=== PATIENT | female | born 1980 ===

== ENCOUNTER 2016-12-04 13:03 | Observation (INO) | payer OTHER ==
[2016-12-04] MEDS ORDERED: Sodium Chloride 0.9% 1,000 ML IV ONE (13:58)
--- NOTE | 2016-12-04 14:01 | ED PDOC ---
HPI: Abdomen Time Seen by Provider: 12/04/16 13:35 Chief Complaint (Nursing): GI Problem History Per: Patient History/Exam Limitations: no limitations Onset/Duration Of Symptoms: Days (4), Gradual Severity: Mild Location Of Pain/Discomfort: Epigastric Quality Of Discomfort: Cramping Associated Symptoms: Nausea, Vomiting. denies: Fever, Chills, Diarrhea, Back Pain, Chest Pain, Constipation, Urinary Symptoms Exacerbating Factors: None Alleviating Factors: None Additional History Per: Patient Additional Complaint(s): Patient having n/v starting yesterday, today patient vomited 4xs. Past Medical History Reviewed: Historical Data, Nursing Documentation, Vital Signs Vital Signs: Last Vital Signs Temp 101.3 F H 12/04/16 13:22 Pulse 100 H 12/04/16 13:22 Resp 18 12/04/16 13:22 BP 131/73 12/04/16 13:22 Pulse Ox 100 12/04/16 14:02 - Family History Family History: States: Unknown Family Hx - Living Arrangements Living Arrangements: With Family - Social History Current smoker - smoking cessation education provided: No - Allergies Allergies/Adverse Reactions: Allergies Allergy/AdvReac Type Severity Reaction Status Date / Time No Known Allergies Allergy Verified 12/04/16 13:22 Review of Systems ROS Statement: Except As Marked, All Systems Reviewed And Found Negative Constitutional: Negative for: Fever, Chills Cardiovascular: Negative for: Chest Pain, Palpitations Respiratory: Positive for: Cough Gastrointestinal: Positive for: Nausea, Vomiting, Abdominal Pain Neurological: Positive for: Headache. Negative for: Weakness, Numbness, Dizziness Physical Exam - Reviewed Nursing Documentation Reviewed: Yes Vital Signs Reviewed: Yes - Physical Exam Appears: Positive for: Uncomfortable Head Exam: Positive for: ATRAUMATIC, NORMAL INSPECTION, NORMOCEPHALIC Eye Exam: Positive for: Normal appearance, EOMI, PERRL Neck: Positive for: Normal, Painless ROM, Supple Cardiovascular/Chest: Positive for: Regular Rate, Rhythm, Chest Non Tender. Negative for: Edema Respiratory: Positive for: Normal Breath Sounds Gastrointestinal/Abdominal: Positive for: Normal Exam, Bowel Sounds, Soft, Tenderness (mild ruq and rlq) Back: Positive for: Normal Inspection. Negative for: L CVA Tenderness, R CVA Tenderness Extremity: Positive for: Normal ROM. Negative for: Tenderness, Pedal Edema Neurologic/Psych: Positive for: Alert, tiler's assistant II-XII, Oriented, Mood/Affect (calm) . Negative for: Motor/Sensory Deficits - Laboratory Results Result Diagrams: 12/04/16 14:00 12/04/16 14:00 - ECG O2 Sat by Pulse Oximetry: 100 Pulse Ox Interpretation: Normal - Progress ED Course And Treament: pt has hamilton colitis, still febrile and tender, will give cipro and flagyl. Re-evaluation Time: 17:02 Condition: Improved Disposition - Clinical Impression Clinical Impression: Colitis - Patient ED Disposition Is Patient to be Admitted: Yes Counseled Patient/Family Regarding: Studies Performed, Diagnosis - Disposition Disposition Time: 17:03 Condition: STABLE - Pt Status Changed To: Hospital Disposition Of: Observation - POA Present On Arrival: None
[2016-12-04 14:15] LABS: BASO # 0.1 K/uL (0.0-0.2); BASO % 0.5 % (0.0-2.0); EOS % 0.1 % (0.0-4.0); HEMATOCRIT 41.4 % (34.0-47.0); LYMPH # 0.5 K/uL (1.0-4.3); LYMPH % 3.5 % (20.0-40.0); MEAN CELL VOLUME 91.3 fl (81.0-99.0); MEAN PLATELET VOLUME 8.1 fl (7.2-11.7); MONO # 0.4 K/uL (0.0-0.8); MONO % 2.8 % (0.0-10.0); NEUT # 12.8 K/uL (1.8-7.0); NEUT % 93.1 % (50.0-75.0); NRBC % 0.3 % (0.0-0.0); PLATELET COUNT 255 K/uL (130-400); RED CELL DISTRIBUTION WIDTH 13.2 % (11.5-14.5); WHITE BLOOD COUNT 13.7 K/uL (4.8-10.8)
[2016-12-04 14:19] LABS: RBC URINE 479 /hpf (0-3); URINE BACTERIA OCC (<OCC); URINE BILIRUBIN NEGATIVE (NEGATIVE); URINE BLOOD LARGE (NEGATIVE); URINE COLOR AMBER (YELLOW); URINE GLUCOSE (UA) NEG (Normal); URINE KETONE NEGATIVE (NEGATIVE); URINE LEUKOCYTE ESTERASE SMALL Leu/uL (Negative); URINE PROTEIN 100 mg/dL (NEGATIVE); URINE UROBILINOGEN 0.2-1.0 mg/dL (0.2-1.0); WBC URINE 22 /hpf (0-5)
[2016-12-04 14:25] LABS: ALB/GLOB RATIO 1.3 (1.0-2.1); ALKALINE PHOSPHATASE 92 U/L (38-126); ALT/SGPT 71 U/L (9-52); AMYLASE 92 U/L (30-110); AST/SGOT 48 U/L (14-36); BILIRUBIN,TOTAL 0.4 mg/dl (0.2-1.3); BLOOD UREA NITROGEN 10 mg/dl (7-17); CALCIUM 8.9 mg/dL (8.4-10.2); CARBON DIOXIDE 22 mmol/L (22-30); CHLORIDE 104 mmol/L (98-107); GFR AFRICAN-AMERICAN > 60; GLUCOSE,RANDOM 131 mg/dL (65-105); LIPASE 36 U/L (23-300); POTASSIUM 3.9 MMOL/L (3.6-5.0); SODIUM 138 mmol/l (132-148); TOTAL PROTEIN 7.6 G/DL (6.3-8.2)
[2016-12-04] MEDS ORDERED: Sodium Chloride 0.9% 50 ML IV ONE (15:37)
[2016-12-04] MEDS ORDERED: Iohexol 300 100 ML IJ ONE (15:37)
[2016-12-04 15:59] LABS: NEUTROPHIL 88 % (42-75); TOTAL CELLS COUNTED 100
[2016-12-04 16:01] LABS: LARGE PLATELETS PRESENT
--- NOTE | 2016-12-04 16:30 | CT ---
PROCEDURE: CT HEAD WITHOUT CONTRAST. HISTORY: ellre COMPARISON: None available. TECHNIQUE: Axial computed tomography images were obtained through the head/brain without intravenous contrast. Radiation dose: Total exam DLP = 758.74 mGy-cm. This CT exam was performed using one or more of the following dose reduction techniques: Automated exposure control, adjustment of the mA and/or kV according to patient size, and/or use of iterative reconstruction technique. FINDINGS: HEMORRHAGE: No intracranial hemorrhage. BRAIN: No mass effect or edema. 9 mm cystic density within the deep white matter on the left of unclear significance, possibly dilated perivascular space. The soriano-white matter differentiation appears grossly intact. Please note that MRI with diffusion imaging is more sensitive in the detection of acute ischemic event. VENTRICLES: No hydrocephalus. CALVARIUM: Unremarkable. PARANASAL SINUSES: Unremarkable as visualized. No significant inflammatory changes. MASTOID AIR CELLS: Unremarkable as visualized. No inflammatory changes. OTHER FINDINGS: None. IMPRESSION: 9 mm cystic density at the level of the deep white matter on the left of unclear significance, possibly dilated perivascular space. Outpatient MRI without and with IV contrast recommended for further evaluation if clinically indicated.
--- NOTE | 2016-12-04 16:40 | CT ---
PROCEDURE: CT Abdomen and Pelvis with contrast HISTORY: abd pain r/o appy COMPARISON: None available. TECHNIQUE: Contrast dose: 90 mL Omnipaque 300 Radiation dose: Total exam DLP = 720.20 mGy-cm. This CT exam was performed using one or more of the following dose reduction techniques: Automated exposure control, adjustment of the mA and/or kV according to patient size, and/or use of iterative reconstruction technique. FINDINGS: LOWER THORAX: Bibasilar atelectasis. No visible pleural effusion or pneumothorax. LIVER: Unremarkable. GALLBLADDER AND BILE DUCTS: Unremarkable. PANCREAS: Unremarkable. SPLEEN: Unremarkable. ADRENALS: Unremarkable. KIDNEYS AND URETERS: The kidneys enhance symmetrically. No hydronephrosis or obstructing calculus identified. VASCULATURE: No aortic aneurysm. BOWEL: Stomach is nondistended. Lack of oral contrast limits evaluation for bowel pathology. Bowel loops appear within normal limits of caliber without evidence of obstruction. Colonic wall thickening involving the right, transverse, left and rectosigmoid colon ; appearance suspicious for colitis (i.e. infectious, inflammatory, ischemic). APPENDIX: The appendix appears within normal limits of caliber. No secondary signs of acute appendicitis. PERITONEUM: No significant free fluid. No definite free air. LYMPH NODES: No bulky adenopathy evident. BLADDER: Unremarkable. REPRODUCTIVE: The uterus is present. IUD. BONES: No acute osseous abnormality is detected. OTHER FINDINGS: None. IMPRESSION: Colonic wall thickening involving the right, transverse, left and rectosigmoid colon ; appearance suspicious for colitis (i.e. infectious, inflammatory, ischemic) ; correlate clinically. IUD. Bibasilar atelectasis.
[2016-12-04] MEDS ORDERED: cefTRIAXone (Rocephin) 1 gm Inj ONE (16:54)
[2016-12-04] MEDS ORDERED: Ciprofloxacin 400mg/200ml D5W 400 MG/200 ML BAG IVPB STA (16:58)
[2016-12-04] MEDS ORDERED: Ciprofloxacin 400mg/200ml D5W 400 MG/200 ML BAG IVPB ONE (16:59)
[2016-12-04] MEDS ORDERED: metroNIDAZOLE 500mg/100ml NS 100 ML IVPB SCH (17:00)
--- NOTE | 2016-12-04 17:14 | CP.PCM.HP ---
History of Present Illness - History of Present Illness History of Present Illness: Chief Complaint: stomach pain HPI: 36 year old female with no past medical history presents today with a 24 hour history of moderate to severe waxing and waning abdominal pain associated with 4 episodes of nonbloody nonbilious emesis and nausea, as well as constant diarrhea, liquid, without hematochezia or melena. Patient states she was in her usual state of health, had pasta and cheese for dinner, and has been experiencing this cramping abd pain since last night. In ER, CT abd + colitis, WBC 13.7 febrile TMAX 102, without electrolyte imbalance. Patient started on Cipro and Flagyl, will place on obs for IV abx. ROS: Per HPI, all other systems reviewed negative by me PMH: denies PSH: denies FH: denies SH: denies tobacco, etoh, ivdu ALLERGIES: NKDA MEDICATIONS: reviewed and as below Vitals reviewed GENERAL APPEARANCE: Well developed, well nourished, alert and cooperative, and appears to be in no acute distress. HEENT: normocephalic, atraumatic PERRL, EOMI. Vision is grossly intact. External auditory canals clear, hearing grossly intact. No nasal discharge. Oral cavity and pharynx normal. No inflammation, swelling, exudate, or lesions. NECK: Neck supple, non-tender without lymphadenopathy, masses or thyromegaly. CARDIAC: Normal S1 and S2. No S3, S4 or murmurs. Rhythm is regular. LUNGS: Clear to auscultation and percussion without rales, rhonchi, wheezing or diminished breath sounds. ABDOMEN: Positive bowel sounds. Soft, nondistended, generalized tenderness. No guarding or rebound. No masses. BACK: Examination of the spine reveals no spinal deformity, symmetry of spinal muscles, EXTREMITIES: No significant deformity or joint abnormality. No edema. NEUROLOGICAL: Strength and sensation symmetric and intact throughout. Reflexes 2 + throughout. SKIN: Skin normal color, texture and turgor with no lesions or eruptions. PSYCHIATRIC: The patient was oriented to person, place, and time. Normal affect. LABS: 12/04/16 14:00 12/04/16 14:[address] ABD +COLITIS Allergies No Known Allergies Allergy (Verified 12/04/16 13:22) Height & Weight Height 5 ft 3 in Weight 145 lb Start Date/Time Active Medications 12/04/16 16:58 Ciprofloxacin 400mg/200ml D5W [Cipro 400mg/200ml DSW] 400 mg in 200 ml IVPB STAT 12/04/16 17:00 metroNIDAZOLE 500mg/100ml NS [Flagyl 500MG/100ML NS] 100 ml IVPB ONCE 12/04/16 17:17 Acetaminophen [Tylenol 325mg tab] 650 mg PO Q6 PRN Ondansetron [Zofran Inj] 4 mg IVP Q6 PRN 12/04/16 17:30 Potassium Ch 20mEq in D5-1/2NS [Potassium Chl 20 mEq in D5-1/2NS] 1,000 ml IV 125 mls/hr Sodium Chloride 0.9% 1,000 ml IV 250 mls/hr 12/04/16 21:00 Ciprofloxacin 400mg/200ml D5W [Cipro 400mg/200ml DSW] 400 mg in 200 ml IVPB Q12 12/05/16 01:00 metroNIDAZOLE 500mg/100ml NS [Flagyl 500MG/100ML NS] 100 ml IVPB Q8 ASSESSMENT AND PLAN 36 year old female with no past medical history presents today with a 24 hour history of moderate to severe waxing and waning abdominal pain associated with 4 episodes of nonbloody nonbilious emesis and nausea, as well as constant diarrhea, liquid, without hematochezia or melena. Patient states she was in her usual state of health, had pasta and cheese for dinner, and has been experiencing this cramping abd pain since last night. In ER, CT abd + colitis, WBC 13.7 febrile TMAX 102, without electrolyte imbalance. Patient started on Cipro and Flagyl, will place on obs for IV abx. Colitis on admission febrile Tmax 102, WBC 12.7 CT Abd: colonic wall thickening involiving the R, transverse, L, and rectosigmoid colon, suspicious for colitis continue Cipro and Flagyl NPO will give additional 2L NS then start on maintenance fluids d5 1/2 NS + 20 KCl check CBC, chem, Mg tomorroq Zofran for nausea Tylenol for antipyretic DVT prophylaxis SCDs Present on Admission - Present on Admission Any Indicators Present on Admission: No Past Patient History - Past Social History Smoking Status: Unknown If Ever Smoked - PSYCHIATRIC Hx Substance Use: No Meds Allergies/Adverse Reactions: Allergies Allergy/AdvReac Type Severity Reaction Status Date / Time No Known Allergies Allergy Verified 12/04/16 13:22 Results - Vital Signs Recent Vital Signs: Last Vital Signs Temp 102 F H 12/04/16 17:02 Pulse 100 H 12/04/16 13:22 Resp 18 12/04/16 13:22 BP 131/73 12/04/16 13:22 Pulse Ox 100 12/04/16 17:03 - Labs Result Diagrams: 12/04/16 14:00 12/04/16 14:00
[2016-12-04] MEDS: Potassium Ch 20mEq in D5-1/2NS 1,000 ML IV SCH (18:39)
[2016-12-04] MEDS ORDERED: metroNIDAZOLE 500mg/100ml NS 100 ML IVPB ONE (19:33)
[2016-12-04] MEDS: Sodium Chloride 0.9% 1,000 ML IV SCH ×2 (19:40→22:27)
[2016-12-04] MEDS: Ciprofloxacin 400mg/200ml D5W 400 MG/200 ML BAG IVPB SCH (22:22)
[2016-12-05] MEDS: Sodium Chloride 0.9% 1,000 ML IV SCH (01:20)
[2016-12-05] MEDS: metroNIDAZOLE 500mg/100ml NS 100 ML IVPB SCH ×3 (01:20→11:17)
[2016-12-05] MEDS: Potassium Ch 20mEq in D5-1/2NS 1,000 ML IV SCH ×4 (01:46→15:25)
[2016-12-05 06:56] LABS: BLOOD UREA NITROGEN 7 mg/dl (7-17); CALCIUM 7.3 mg/dL (8.4-10.2); CARBON DIOXIDE 20 mmol/L (22-30); CHLORIDE 111 mmol/L (98-107); GFR AFRICAN-AMERICAN > 60; GLUCOSE,RANDOM 100 mg/dL (65-105); MAGNESIUM 1.8 MG/DL (1.6-2.3); SODIUM 139 mmol/l (132-148)
[2016-12-05 07:08] LABS: BASO % 0.5 % (0.0-2.0); EOS % 0.3 % (0.0-4.0); HEMATOCRIT 34.2 % (34.0-47.0); LYMPH # 0.6 K/uL (1.0-4.3); LYMPH % 8.2 % (20.0-40.0); MEAN CELL VOLUME 89.3 fl (81.0-99.0); MEAN CORPUSCULAR HEMOGLOBIN 31.2 pg (27.0-31.0); MEAN CORPUSCULAR HGB CONC 34.9 g/dL (33.0-37.0); MEAN PLATELET VOLUME 8.2 fl (7.2-11.7); MONO # 0.5 K/uL (0.0-0.8); MONO % 6.6 % (0.0-10.0); NEUT # 6.7 K/uL (1.8-7.0); NEUT % 84.4 % (50.0-75.0); RED CELL DISTRIBUTION WIDTH 13.2 % (11.5-14.5); WHITE BLOOD COUNT 7.9 K/uL (4.8-10.8)
[2016-12-05] MEDS: Ciprofloxacin 400mg/200ml D5W 400 MG/200 ML BAG IVPB SCH (08:37)
[2016-12-05] MEDS ORDERED: Potassium Chloride 20 mEq/15 ml LIQ UD PO ONE (09:22)
--- NOTE | 2016-12-05 11:11 | CP.PCM.PN ---
Subjective - Date & Time of Evaluation Date of Evaluation: 12/05/16 Time of Evaluation: 10:30 - Subjective Subjective: Patient seen and examined bidside. feeling a little better . Still with multiple episodes of watery diarrhea. Denies any nausea , vomiting. Hemodynamically stable. Tmax 100.1 @ 8 PM .With some left lower quadrant pain , cramp like. Denies any blood in the stool WBC 7.8 Objective - Vital Signs/Intake and Output Vital Signs (last 24 hours): Temp Pulse Resp BP Pulse Ox 98.0 F 90 18 107/68 97 12/05/16 07:57 12/05/16 07:57 12/05/16 07:57 12/05/16 07:57 12/05/16 07:57 - Medications Medications: Current Medications Acetaminophen (Tylenol 325mg Tab) 650 mg PO Q6 PRN PRN Reason: Fever >100.4 F Acetaminophen (Tylenol 325mg Tab) 650 mg PO Q6 PRN PRN Reason: Headache Last Admin: 12/04/16 21:35 Dose: 650 mg Metronidazole (Flagyl 500mg/100ml Ns) 100 mls @ 100 mls/hr IVPB ONCE SHAMEKA Last Admin: 12/04/16 19:48 Dose: 100 mls/hr Ciprofloxacin (Cipro 400mg/200ml Dsw) 400 mg in 200 mls @ 200 mls/hr IVPB Q12 SHAMEKA Last Admin: 12/05/16 08:37 Dose: 200 mls/hr Potassium Chloride/Dextrose/Sod Cl (Potassium Chl 20 Meq In D5-1/2ns) 1,000 mls @ 125 mls/hr IV .Q8H [facility] Stop: 12/05/16 17:19 Last Admin: 12/05/16 01:46 Dose: Not Given Metronidazole (Flagyl 500mg/100ml Ns) 100 mls @ 100 mls/hr IVPB 0400,1200,2000 SHAMEKA Last Admin: 12/05/16 03:45 Dose: 100 mls/hr Ondansetron HCl (Zofran Inj) 4 mg IVP Q6 PRN PRN Reason: Nausea/Vomiting Last Admin: 12/05/16 09:52 Dose: 4 mg - Labs Labs: 12/05/16 06:05 12/05/16 06:05 - Constitutional Appears: Non-toxic, No Acute Distress - Head Exam Head Exam: ATRAUMATIC, NORMAL INSPECTION, NORMOCEPHALIC - Eye Exam Eye Exam: EOMI, Normal appearance, PERRL Pupil Exam: NORMAL ACCOMODATION - ENT Exam ENT Exam: Mucous Membranes Moist, Normal Exam - Neck Exam Neck Exam: Full ROM, Normal Inspection - Respiratory Exam Respiratory Exam: Clear to Ausculation Bilateral, NORMAL BREATHING PATTERN. absent: Rales, Rhonchi, Wheezes - Cardiovascular Exam Cardiovascular Exam: REGULAR RHYTHM, RRR, +S1, +S2. absent: JVD - GI/Abdominal Exam GI & Abdominal Exam: Soft, Tenderness (LLQ), Hyperactive Bowel Sounds. absent: Distended, Guarding, Rebound - Rectal Exam Rectal Exam: Deferred - Extremities Exam Extremities Exam: Full ROM, Normal Capillary Refill, Normal Inspection - Back Exam Back Exam: NORMAL INSPECTION - Neurological Exam Neurological Exam: Alert, Awake, CN II-XII Intact, Oriented x3 - Psychiatric Exam Psychiatric exam: Normal Affect, Normal Mood - Skin Skin Exam: Dry, Intact, Normal Color, Warm Assessment and Plan - Assessment and Plan (Free Text) Assessment: 36 year old female with no past medical history presented with 24 hour history of moderate to severe waxing and waning abdominal pain associated with episodes of nonbloody nonbilious emesis and nausea, as well as constant diarrhea , liquid, without hematochezia or melena. Patient states she was in her usual state of health, had pasta and cheese for dinner, and has been experiencing this cramping abd pain since last night. CT abdomen showed colitis, WBC 13.7 febrile TMAX 102, without electrolyte imbalance. Patient started on Cipro and Flagyl. Today still with episodes of diarrhea. Afebrile last 12 hours WBC normal 1.Colitis Most likely non infectious etiology CT Abd: colonic wall thickening involiving the R, transverse, L, and rectosigmoid colon, suspicious for colitis C.dif negative Still witrh episodes of diarrhea today Continue Cipro and Flagyl, IVF Start Low fiber diet 2. Hypokalemia Most likely secondary to diarrhea Replace with KCL pO 3. Hematuria Probably secondary to menstrual cycle
--- NOTE | 2016-12-05 11:32 | CARD ---
APPROVED REPORT EKG Measurement Heart [id number] OR 124P-21 [id number] <Conclusion> Normal sinus rhythm Normal ECG
[2016-12-05 16:06] VITALS: BP 120/78; PULSE 72; RESP 20; TEMP 98.7; O2SAT 98
--- NOTE | 2016-12-05 16:27 | CP.PCM.DIS ---
Provider - Provider Date of Admission: 12/04/16 17:00 Attending physician: Marysol Burton DO Consults: 30 Time Spent in preparation of Discharge (in minutes): 30 Hospital Course - Lab Results Lab Results: Most Recent Lab Values WBC 7.9 K/uL (4.8-10.8) 12/05/16 06:05 RBC 3.83 Mil/uL (3.80-5.20) 12/05/16 06:05 Hgb 11.9 g/dL (12.0-16.0) L D 12/05/16 06:05 Hct 34.2 % (34.0-47.0) 12/05/16 06:05 MCV 89.3 fl (81.0-99.0) D 12/05/16 06:05 MCH 31.2 pg (27.0-31.0) H 12/05/16 06:05 MCHC 34.9 g/dL (33.0-37.0) 12/05/16 06:05 RDW 13.2 % (11.5-14.5) 12/05/16 06:05 Plt Count 217 K/uL (130-400) 12/05/16 06:05 MPV 8.2 fl (7.2-11.7) 12/05/16 06:05 Neut % (Auto) 84.4 % (50.0-75.0) H 12/05/16 06:05 Lymph % (Auto) 8.2 % (20.0-40.0) L 12/05/16 06:05 [place] % (Auto) 6.6 % (0.0-10.0) 12/05/16 06:05 Eos % (Auto) 0.3 % (0.0-4.0) 12/05/16 06:05 Baso % (Auto) 0.5 % (0.0-2.0) 12/05/16 06:05 Neut # 6.7 K/uL (1.8-7.0) 12/05/16 06:05 Lymph # 0.6 K/uL (1.0-4.3) L 12/05/16 06:05 [place] # 0.5 K/uL (0.0-0.8) 12/05/16 06:05 Eos # 0.0 K/uL (0.0-0.7) 12/05/16 06:05 Baso # 0.0 K/uL (0.0-0.2) 12/05/16 06:05 Neutrophils % (Manual) 88 % (42-75) H 12/04/16 14:00 Band Neutrophils % 3 % (0-2) H 12/04/16 14:00 Lymphocytes % (Manual) 6 % (20-50) L 12/04/16 14:00 Monocytes % (Manual) 3 % (0-10) 12/04/16 14:00 Platelet Estimate Normal (NORMAL) 12/04/16 14:00 Large Platelets Present 12/04/16 14:00 RBC Morphology Normal (NORMAL) 12/04/16 14:00 Sodium 139 mmol/l (132-148) 12/05/16 06:05 Potassium 3.0 MMOL/L (3.6-5.0) L 12/05/16 06:05 Chloride 111 mmol/L (98-107) H 12/05/16 06:05 Carbon Dioxide 20 mmol/L (22-30) L 12/05/16 06:05 Anion Gap 11 (10-20) 12/05/16 06:05 BUN 7 mg/dl (7-17) 12/05/16 06:05 Creatinine 0.5 mg/dL (0.7-1.2) L 12/05/16 06:05 Est GFR ( Amer) > 60 12/05/16 06:05 Est GFR (Non-Af Amer) > 60 12/05/16 06:05 Random Glucose 100 mg/dL (65-105) 12/05/16 06:05 Lactic Acid 0.9 MMOL/L (0.7-2.1) 12/04/16 17:00 Calcium 7.3 mg/dL (8.4-10.2) L 12/05/16 06:05 Magnesium 1.8 MG/DL (1.6-2.3) 12/05/16 06:05 Total Bilirubin 0.4 mg/dl (0.2-1.3) 12/04/16 14:00 AST 48 U/L (14-36) H 12/04/16 14:00 ALT 71 U/L (9-52) H 12/04/16 14:00 Alkaline Phosphatase 92 U/L (38-126) 12/04/16 14:00 Troponin I < 0.0120 ng/mL (0.00-0.120) 12/04/16 14:00 Total Protein 7.6 G/DL (6.3-8.2) 12/04/16 14:00 Albumin 4.3 g/dL (3.5-5.0) 12/04/16 14:00 Globulin 3.3 gm/dL (2.2-3.9) 12/04/16 14:00 Albumin/Globulin Ratio 1.3 (1.0-2.1) 12/04/16 14:00 Amylase 92 U/L (30-110) 12/04/16 14:00 Lipase 36 U/L (23-300) 12/04/16 14:00 Urine Color Jennifer (YELLOW) 12/04/16 14:00 Urine Clarity Slighty-cloudy (Clear) 12/04/16 14:00 Urine pH 5.0 (5.0-8.0) 12/04/16 14:00 Ur Specific [place] 1.034 (1.003-1.030) H 12/04/16 14:00 Urine Protein 100 mg/dL (NEGATIVE) 12/04/16 14:00 Urine Glucose (UA) Neg mg/dL (Normal) 12/04/16 14:00 Urine Ketones Negative mg/dL (NEGATIVE) 12/04/16 14:00 Urine Blood Large (NEGATIVE) 12/04/16 14:00 Urine Nitrate Negative (NEGATIVE) 12/04/16 14:00 Urine Bilirubin Negative (NEGATIVE) 12/04/16 14:00 Urine Urobilinogen 0.2-1.0 mg/dL (0.2-1.0) 12/04/16 14:00 Ur Leukocyte Esterase Small Priyanka/uL (Negative) 12/04/16 14:00 Urine RBC (Auto) 479 /hpf (0-3) H 12/04/16 14:00 Urine Microscopic WBC 22 /hpf (0-5) H 12/04/16 14:00 Ur Squamous Epith Cells 9 /hpf (0-5) H 12/04/16 14:00 Urine Bacteria Occ (<OCC) H 12/04/16 14:00 Hyaline Casts 3-5 /hpf (0-2) H 12/04/16 14:00 C. difficile Ag & Toxin Negative (NEGATIVE) 12/05/16 13:30 - Hospital Course Hospital Course: Assessment: 36 year old female with no past medical history presented with 24 hour history of moderate to severe waxing and waning abdominal pain associated with episodes of nonbloody nonbilious emesis and nausea, as well as constant diarrhea , liquid, without hematochezia or melena. Patient states she was in her usual state of health, had pasta and cheese for dinner, and has been experiencing this cramping abd pain since last night. CT abdomen showed colitis, WBC 13.7 febrile TMAX 102, without electrolyte imbalance. Patient started on Cipro and Flagyl. Today still with episodes of diarrhea, but has decreased since yesterday, abdominal pain has subsided. Afebrile last 12 hours WBC normal 1.Colitis Most likely non infectious etiology CT Abd: colonic wall thickening involiving the R, transverse, L, and rectosigmoid colon, suspicious for colitis C.dif negative Still witrh episodes of diarrhea today but less then yesterday. Abdominal pain has subsided Continue PO Cipro and Flagyl, medication has been given to the patient Continue Low fiber diet 2. Hypokalemia Most likely secondary to diarrhea Given potasium supplementation 3. Hematuria Probably secondary to menstrual cycle - Patient is doing much better. Is tolerating PO intake, diarrhea is subsiding. Pt has been given a script for PO cipro and flagyl. Encourged hydration. ER precausions have been given.Follow up with myself in the clinic. Discharge Exam - Head Exam Head Exam: ATRAUMATIC, NORMAL INSPECTION, NORMOCEPHALIC - Eye Exam Eye Exam: Normal appearance Pupil Exam: NORMAL ACCOMODATION - ENT Exam ENT Exam: Mucous Membranes Moist - Respiratory Exam Respiratory Exam: Clear to PA & Lateral, NORMAL BREATHING PATTERN. absent: Rales, Rhonchi, Wheezes - Cardiovascular Exam Cardiovascular Exam: REGULAR RHYTHM, +S1, +S2 - GI/Abdominal Exam GI & Abdominal Exam: Normal Bowel Sounds - Skin Skin Exam: Normal Color, Warm Discharge Plan - Discharge Medications Prescriptions: Ciprofloxacin HCl [Cipro] 500 mg PO BID #10 tablet Metronidazole [Flagyl] 500 mg PO Q8 #15 tablet - Follow Up Plan Condition: GOOD Disposition: HOME/ ROUTINE Instructions: Acute Diarrhea (GEN) Additional Instructions: follow up visit with dr briggs on 12/23/16 at 10am in [facility]
== END 2016-12-05 18:05 | disposition home or self-care (01) ==
LOC: H.ER 13:03 → H.ERHOLD 17:00 → H.MEDSURG1 20:50
PROVIDERS: ADMIT Student in an Organized Health Care Education/Training Program; ATTEND Student in an Organized Health Care Education/Training Program
DX: K52.9 Noninfective gastroenteritis and colitis, unspecified (principal); E87.6 Hypokalemia; R31.9 Hematuria, unspecified

== ENCOUNTER 2017-03-06 09:17 | Emergency (ER) | payer OTHER ==
[2017-03-06 09:27] VITALS: RESP 16; TEMP 98.7; O2SAT 99; BMI 28.9
--- NOTE | 2017-03-06 12:08 | ED PDOC ---
HPI: CCC, URI, Sore Throat Time Seen by Provider: 03/06/17 09:36 Chief Complaint (Nursing): ENT Problem Chief Complaint (Provider): Cough, cold, congestion History Per: Patient History/Exam Limitations: no limitations Have you had recent travel within the past 21 days to any of the following countries: [place], [place], [place] or [place]?: No Onset/Duration Of Symptoms: Days Current Symptoms Are (Timing): Still Present Sick Contacts (Context): None Associated Symptoms: Fever Additional Complaint(s): The patient is a 36yo female, presents to the ED for evaluation of rhinorrhea, sore throat, cough, nasal congestion for the past couple days. Patient denies taking any medications for her symptoms. She additionally denies any fever or chills. She offers no additional medical complaints. Past Medical History Reviewed: Historical Data, Nursing Documentation, Vital Signs Vital Signs: Last Vital Signs Temp 98.7 F 03/06/17 09:25 Pulse 78 03/06/17 12:44 Resp 16 03/06/17 09:25 BP 126/72 03/06/17 12:44 Pulse Ox 99 03/08/17 15:01 - Medical History PMH: No Chronic Diseases Denies: Chronic Kidney Disease - Surgical History Surgical History: No Surg Hx - Family History Family History: States: No Known Family Hx, Unknown Family Hx - Social History Current smoker - smoking cessation education provided: No Alcohol: None Drugs: Denies - Home Medications Home Medications: Ambulatory Orders Medication Instructions Recorded Loratadine/Pseudoephedrine 1 each PO DAILY PRN #10 tab.er.24h 03/06/17 [Claritin-D 24 Hour Tablet] - Allergies Allergies/Adverse Reactions: Allergies Allergy/AdvReac Type Severity Reaction Status Date / Time No Known Allergies Allergy Verified 03/06/17 09:35 Review of Systems Constitutional: Negative for: Fever, Sweats ENT: Positive for: Nose Discharge, Nose Congestion Respiratory: Positive for: Cough Physical Exam - Reviewed Nursing Documentation Reviewed: Yes Vital Signs Reviewed: Yes - Physical Exam Appears: Positive for: Non-toxic, No Acute Distress Head Exam: Positive for: ATRAUMATIC, NORMAL INSPECTION, NORMOCEPHALIC Skin: Positive for: Warm, Dry Eye Exam: Positive for: EOMI, PERRL ENT: Positive for: TM Is/Are (clear bilaterally), Other (uvula midline). Negative for: Pharyngeal Erythema, Tonsillar Exudate, Tonsillar Swelling Neck: Positive for: Supple Cardiovascular/Chest: Positive for: Regular Rate, Rhythm Respiratory: Positive for: Normal Breath Sounds. Negative for: Wheezing, Respiratory Distress Neurologic/Psych: Positive for: Alert, Oriented. Negative for: Motor/Sensory Deficits - ECG O2 Sat by Pulse Oximetry: 99 (RA) Pulse Ox Interpretation: Normal Medical Decision Making Medical Decision Making: Time: 944 Impression: URI Plan: -- Chest x-ray Reassess Accession No. : [id number] Patient Name / ID : HESHAM HERRERA / [id number] Exam Date : 03/06/2017 11:34:23 ( Approved ) Study Comment : Sex / Age : F / 36Y Creator : Stefanie SWAN MD Dictator : Stefanie SWAN MD Program Consultant : Alarm Mechanism Adjuster : Stefanie SWAN MD Approver2 : Report Date : 03/06/2017 11:48:15 My Comment : HISTORY: COMPARISON: No prior. TECHNIQUE: Chest PA and lateral FINDINGS: LINES AND TUBES: None. LUNG AND PLEURA: The lungs are well inflated and clear. HEART AND MEDIASTINUM: The heart is not enlarged. The hilar and mediastinal contours are within normal limits. SKELETAL STRUCTURES: The bony structures are within normal limits for the patient's age. VISUALIZED UPPER ABDOMEN: Normal. OTHER FINDINGS: None. IMPRESSION: No active pulmonary disease. Scribe Attestation: Documented by Amelia Rice acting as a scribe for Susana Frias MD. Provider Attestation: All medical record entries made by the Scribe were at my direction and personally dictated by me. I have reviewed the chart and agree that the record accurately reflects my personal performance of the history, physical exam, medical decision making, and the department course for this patient. I have also personally directed, reviewed, and agree with the discharge instructions and disposition. Disposition - Clinical Impression Clinical Impression: URI (upper respiratory infection) - Disposition Referrals: [facility] [Outside] Disposition: Routine/Home Disposition Time: 12:36 Condition: STABLE Prescriptions: Loratadine/Pseudoephedrine [Claritin-D 24 Hour Tablet] 1 each PO DAILY PRN #10 tab.er.24h PRN Reason: Allergy Symptoms Instructions: Upper Respiratory Infection (ED) Forms: [employer] (Chinese) Print Language: PASHTO
[2017-03-06 12:45] VITALS: BP 126/72; PULSE 78
== END 2017-03-06 12:44 | disposition home or self-care (01) ==
LOC: H.ER 09:17
DX: J06.9 Acute upper respiratory infection, unspecified (principal)

== ENCOUNTER 2017-11-29 10:33 | Emergency (ER) | payer OTHER ==
[2017-11-29 10:40] VITALS: BMI 25.4
[2017-11-29 10:42] VITALS: TEMP 98.1
--- NOTE | 2017-11-29 11:41 | ED PDOC ---
HPI: Skin/Bite Injury Time Seen by Provider: 11/29/17 10:45 Chief Complaint (Nursing): Abnormal Skin Integrity History Per: Patient (this 37 yo female presents with a painful rash on the left torso that started about 3 days ago. Pain is described as burning an achy.) Past Medical History Reviewed: Historical Data, Nursing Documentation, Vital Signs Vital Signs: Last Vital Signs Temp 98.1 F 11/29/17 10:42 Pulse 72 11/29/17 10:42 Resp 20 11/29/17 10:42 BP 131/83 11/29/17 10:42 Pulse Ox 99 11/29/17 10:42 - Medical History PMH: No Chronic Diseases Denies: Chronic Kidney Disease - Family History Family History: States: Unknown Family Hx - Living Arrangements Living Arrangements: With Family - Social History Current smoker - smoking cessation education provided: No - Home Medications Home Medications: Ambulatory Orders Medication Instructions Recorded Loratadine/Pseudoephedrine 1 each PO DAILY PRN #10 tab.er.24h 03/06/17 [Claritin-D 24 Hour Tablet] Acyclovir [Zovirax] 800 mg PO Q4H #28 tablet 11/29/17 Gabapentin [Neurontin] 300 mg PO TID #90 cap 11/29/17 - Allergies Allergies/Adverse Reactions: Allergies Allergy/AdvReac Type Severity Reaction Status Date / Time No Known Allergies Allergy Verified 03/06/17 09:35 Review of Systems ROS Statement: Except As Marked, All Systems Reviewed And Found Negative Skin: Positive for: Rash (grouped vesicles in dermatomal fashion) Physical Exam - Reviewed Nursing Documentation Reviewed: Yes Vital Signs Reviewed: Yes - Physical Exam Appears: Positive for: Well, Non-toxic, No Acute Distress Head Exam: Positive for: ATRAUMATIC, NORMAL INSPECTION, NORMOCEPHALIC Skin: Positive for: Normal Color, Warm, Rash (grouped vesicles in different stages of healing in dermatomal distribution) Eye Exam: Positive for: Normal appearance ENT: Positive for: Normal ENT Inspection Neck: Positive for: Normal Gastrointestinal/Abdominal: Positive for: Normal Exam, Soft Back: Positive for: Normal Inspection Extremity: Positive for: Normal ROM Neurologic/Psych: Positive for: Alert, Oriented - ECG O2 Sat by Pulse Oximetry: 99 Disposition - Clinical Impression Clinical Impression: Shingles - Patient ED Disposition Is Patient to be Admitted: No Doctor Will See Patient In The: Office - Disposition Referrals: [facility] [Outside] [facility] [Outside] Disposition: Routine/Home Disposition Time: 11:45 Condition: STABLE Prescriptions: Acyclovir [Zovirax] 800 mg PO Q4H #28 tablet Gabapentin [Neurontin] 300 mg PO TID #90 cap Instructions: Shingles Forms: [facility] (Ugandan) Print Language: BELIZEAN - Pt Status Changed To: Hospital Disposition Of: Observation - POA Present On Arrival: None
[2017-11-29 12:03] VITALS: BP 121/68; PULSE 77; RESP 14; O2SAT 100
== END 2017-11-29 12:05 | disposition home or self-care (01) ==
LOC: H.ER 10:33
DX: B02.9 Zoster without complications (principal)